=== PATIENT | female | born 1985 | race Two or more races ===

== ENCOUNTER → 2020-11-09 | Outpatient (CLI) | payer OTHER | END | disposition home or self-care (01) | LOC: PRENATAL 15:12 | PROVIDERS: ATTEND Obstetrics & Gynecology Maternal & Fetal Medicine | DX: Z36.89 Encounter for other specified antenatal screening (principal); O09.511 Supervision of elderly primigravida, first trimester; O36.80X1 Pregnancy with inconclusive fetal viability, fetus 1; Z3A.14 14 weeks gestation of pregnancy ==

== ENCOUNTER → 2020-12-19 | Outpatient (CLI) | payer OTHER | END | disposition home or self-care (01) | LOC: PRENATAL 14:00 | PROVIDERS: ATTEND Obstetrics & Gynecology Maternal & Fetal Medicine | DX: O35.0XX1 Maternal care for (suspected) central nervous system malformation in fetus, fetus 1 (principal); O35.3XX1 Maternal care for (suspected) damage to fetus from viral disease in mother, fetus 1; O98.512 Other viral diseases complicating pregnancy, second trimester; O09.512 Supervision of elderly primigravida, second trimester; O44.02 Complete placenta previa NOS or without hemorrhage, second trimester; Z36.89 Encounter for other specified antenatal screening; Z3A.20 20 weeks gestation of pregnancy ==

== ENCOUNTER 2021-03-14 18:57 | Inpatient (IN) | payer OTHER ==
[~2021-03-14] VITALS: Ht 160 cm; Wt 73.5 kg
[2021-03-15] MEDS ORDERED: NITROFURANTOIN100 M1 (08:25)
[2021-03-15] MEDS ORDERED: AMOX-CLAV 500-1 EACH (08:25)
[2021-03-15] MEDS ORDERED: PANTOPRAZOLE SO40 MG (08:25)
[2021-03-15] MEDS ORDERED: ONDANSETRON HCL4 MG (08:26)
[2021-03-16] MEDS ORDERED: MACROBID 100 M100 MG PO (12:00)
== END 2021-03-16 15:04 | disposition home or self-care (01) | DRG 831 ==
LOC: LDR 18:57
PROVIDERS: ADMIT Obstetrics & Gynecology; ATTEND Obstetrics & Gynecology
PROC: 4A1HXFZ Monitoring of Products of Conception, Cardiac Rhythm, External Approach (ICD-10-PCS; principal; 2021-03-14)
PROC: BY4FZZZ Ultrasonography of Third Trimester, Single Fetus (ICD-10-PCS; 2021-03-14)
DX: O46.8X3 Other antepartum hemorrhage, third trimester (principal); O60.03 Preterm labor without delivery, third trimester; Z3A.31 31 weeks gestation of pregnancy; Z20.822 Contact with and (suspected) exposure to COVID-19

== ENCOUNTER 2021-04-16 15:15 | Inpatient (IN) | payer OTHER ==
[~2021-04-16] VITALS: Ht 160 cm; Wt 75.7 kg
[~2021-04-16 15:15] MED LIST: AMOX-CLAV 500-1 EACH; MACROBID 100 M100 MG PO; NITROFURANTOIN100 M1; ONDANSETRON HCL4 MG; PANTOPRAZOLE SO40 MG
[2021-05-06] MEDS ORDERED: FOLIC ACID1 MG PO (04:39)
[2021-05-06] MEDS ORDERED: PRENATAL TABLE1 EAC1 PO (04:39)
[2021-05-06] MEDS ORDERED: ZYRTEC10 M3 PO (04:40)
== END 2021-05-08 14:41 | disposition home or self-care (01) | DRG 807 ==
LOC: OB/GYN 05-06 02:50 → LDR 05-06 02:50 → OB/GYN 05-06 06:54 → SURH 05-06 15:15 → OB/GYN 05-08 14:41
PROVIDERS: ADMIT Obstetrics & Gynecology; ATTEND Obstetrics & Gynecology
PROC: 10E0XZZ Delivery of Products of Conception, External Approach (ICD-10-PCS; principal; 2021-05-06)
PROC: 0W8NXZZ Division of Female Perineum, External Approach (ICD-10-PCS; 2021-05-06)
PROC: 4A1HXFZ Monitoring of Products of Conception, Cardiac Rhythm, External Approach (ICD-10-PCS; 2021-05-06)
DX: O48.0 Post-term pregnancy (principal); Z37.0 Single live birth; O99.824 Streptococcus B carrier state complicating childbirth; Z3A.40 40 weeks gestation of pregnancy